=== PATIENT | female | born 2000 | race Caucasian/White ===

== ENCOUNTER 2019-04-18 04:24 | Emergency (ER) | payer OTHER ==
[2019-04-18] MEDS: Sodium Chloride 0.9% 10 ML Syringe FLUSH PRN ×2 (04:25→04:51)
[2019-04-18] MEDS ORDERED: Sodium Chloride 0.9% 1,000 ML IV ONE (04:34)
[2019-04-18] MEDS ORDERED: NS + KCl 20mEq/L 1,000 ML IV SCH (05:45)
--- NOTE | 2019-04-18 06:21 | EDM.PDOC ---
ED HPI GENERAL MEDICAL PROBLEM - General Chief Complaint: Drug or Alcohol Abuse Stated Complaint: INTOXICATED Time Seen by Provider: 04/18/19 06:15 Source of Information: Reports: EMS History Limitations: Reports: Intoxication - History of Present Illness INITIAL COMMENTS - FREE TEXT/NARRATIVE: Briana is 18 yrs.She presents by EMS after alcohol intoxication,not waking up. Had one episode of vomiting.No reports of trauma,fever,or head injury.No further history obtainable - Related Data Allergies Allergy/AdvReac Type Severity Reaction Status Date / Time Unable to Assess Allergy Unverified 04/18/19 04:34 Home Meds: Home Meds . [Unable to Verify Home Med List] 04/18/19 [History] Social & Family History - Tobacco Use Smoking Status *Q: Unknown Ever Smoked - Caffeine Use Caffeine Use: Reports: Soda - Alcohol Use Date of Last Drink: 04/18/19 Time of Last Drink: 03:30 - Recreational Drug Use Recreational Drug Use: No ED ROS GENERAL - Review of Systems Review Of Systems: ROS reveals no pertinent complaints other than HPI. - Physical Exam Exam: See Below Exam Limited By: Intoxication General Appearance: Alert, WD/WN Ears: Normal External Exam Nose: Normal Inspection Head Exam: Atraumatic, Normocephalic Neck: Supple, Non-Tender Respiratory/Chest: No Respiratory Distress Cardiovascular: Normal Peripheral Pulses Neuro Exam (Abbreviated): Disoriented Extremities: Normal Inspection Course - Vital Signs Last Recorded V/S: Last Vital Signs Temp 97.5 F 04/18/19 04:30 Pulse 100 04/18/19 07:18 Resp 16 04/18/19 07:18 BP 90/59 L 04/18/19 07:18 Pulse Ox 100 04/18/19 07:18 - Orders/Labs/Meds Labs: Laboratory Tests 04/18/19 04/18/19 04/18/19 Range/Units 04:50 04:50 04:50 WBC 6.1 (4.5-12.0) X10-3/uL RBC 4.82 (3.23-5.20) x10(6)uL Hgb 13.6 (11.5-15.5) g/dL Hct 40.9 (30.0-51.3) % MCV 84.9 (80-96) fL MCH 28.3 (27.7-33.6) pg MCHC 33.3 (32.2-35.4) g/dL RDW 12.8 (11.5-15.5) % Plt Count 242 (125-369) X10(3)uL MPV 8.1 (7.4-10.4) fL Neut % (Auto) 47.9 (46-82) % Lymph % (Auto) 40.6 H (13-37) % Sandoval % (Auto) 7.2 (4-12) % Eos % (Auto) 4 (1.0-5.0) % Baso % (Auto) 0 (0-2) % Neut # (Auto) 3.0 (1.6-8.3) # Lymph # (Auto) 2.5 (0.6-5.0) # Sandoval # (Auto) 0.4 (0.0-1.3) # Eos # (Auto) 0.2 (0.0-0.8) # Baso # (Auto) 0.0 (0.0-0.2) # Sodium 141 (135-145) mmol/L Potassium 2.9 L (3.5-5.3) mmol/L Chloride 106 (100-110) mmol/L Carbon Dioxide 23 (21-32) mmol/L BUN 14 (7-18) mg/dL Creatinine 0.9 (0.55-1.02) mg/dL Est Cr Clr Drug Dosing 75.24 mL/min Estimated GFR (MDRD) > 60 (>60) BUN/Creatinine Ratio 15.6 (9-20) Glucose 79 L (80-116) mg/dL Calcium 8.5 L (8.6-10.2) mg/dL Total Bilirubin 1.2 (0.1-1.3) mg/dL AST 13 (5-25) IU/L ALT 15 (12-36) U/L Alkaline Phosphatase 70 (56-112) IU/L Total Protein 7.5 (6.0-8.0) g/dL Albumin 3.7 (3.5-5.2) g/dL Globulin 3.8 g/dL Albumin/Globulin Ratio 1.0 Ethyl Alcohol 0.26 H* (<0.03) % Meds: Medications Discontinued Medications Generic Name Dose Route Start Last Admin Trade Name Freq PRN Reason Stop Dose Admin Sodium Chloride 1,000 mls @ 999 mls/hr 04/18/19 04:34 04/18/19 04:51 Normal Saline IV 04/18/19 05:34 999 mls/hr .BOLUS ONE Administration Potassium Chloride/Sodium Chloride 1,000 mls @ 150 mls/hr 04/18/19 05:45 06:21 Normal Saline With 20 Meq Kcl IV 500 mls/hr ASDIRECTED UMAIR Infusion Sodium Chloride 10 ml 04/18/19 04:34 04/18/19 04:51 Saline Flush FLUSH 10 ml ASDIRECTED PRN Administration IV Use Departure - Departure Time of Disposition: 08:51 Disposition: Home, Self-Care 01 Clinical Impression: Alcohol intoxication Qualifiers: Complication of substance-induced condition: uncomplicated Qualified Code(s): F10.920 - Alcohol use, unspecified with intoxication, uncomplicated - Discharge Information Instructions: Alcohol Intoxication, [id number] Referrals: PCP,None [Primary Care Provider] - Forms: ED Department Discharge Additional Instructions: Follow-up with PCP as needed. - Problem List & Annotations (1) Alcohol intoxication SNOMED Code(s): 19015419 Code(s): F10.929 - ALCOHOL USE, UNSPECIFIED WITH INTOXICATION, UNSPECIFIED Status: Acute Qualifiers: Complication of substance-induced condition: uncomplicated Qualified Code(s ): F10.920 - Alcohol use, unspecified with intoxication, uncomplicated (2) Hypokalemia SNOMED Code(s): 55755832 Code(s): E87.6 - HYPOKALEMIA Status: Acute - Problem List Review Problem List Initiated/Reviewed/Updated: Yes - Assessment/Plan Plan: I L NS and with Kcl. May DC afterwards
== END 2019-04-18 07:20 | disposition home or self-care (01) ==
LOC: FB.ED 04:24
DX: F10.120 Alcohol abuse with intoxication, uncomplicated (principal); E87.6 Hypokalemia; Y90.8 Blood alcohol level of 240 mg/100 ml or more
CPT/HCPCS: 36415; 80053; 80320; 85025; 96360; 96361; 99284; J3480; J7030; G0480